=== PATIENT | female | born 1960 | race African-American/Black ===

== ENCOUNTER → 2019-09-17 | Outpatient (CLI) | payer BC | END | disposition home or self-care (01) | LOC: RAD 11:01 | PROVIDERS: ATTEND Internal Medicine Rheumatology | DX: M81.0 Age-related osteoporosis without current pathological fracture (principal); M19.90 Unspecified osteoarthritis, unspecified site; M06.4 Inflammatory polyarthropathy; M05.79 Rheumatoid arthritis with rheumatoid factor of multiple sites without organ or systems involvement; L40.50 Arthropathic psoriasis, unspecified | CPT/HCPCS: 77080 ==

== ENCOUNTER → 2020-07-27 | Outpatient (CLI) | payer BC | END | disposition home or self-care (01) | LOC: LAB 11:25 | PROVIDERS: ATTEND Internal Medicine Geriatric Medicine | DX: Z20.828 Contact with and (suspected) exposure to other viral communicable diseases (principal); M15.0 Primary generalized (osteo)arthritis; I10 Essential (primary) hypertension; Z00.01 Encounter for general adult medical examination with abnormal findings | CPT/HCPCS: 87635; C9803 ==

== ENCOUNTER → 2020-07-29 | Outpatient (CLI) | payer BC ==
[2020-07-29 16:00] LABS: BASOPHILS % 0.5 % (0.0-2.0); EOSINOPHILS % 0.3 % (0.0-5.0); HEMATOCRIT. 44.8 % (36.0-48.0); HEMOGLOBIN. 15.3 g/dL (12.0-16.0); LYMPHOCYTES % 16.2 % (20.0-50.0); MEAN CORPUSCULAR HEMOGLOBIN 33.8 pg (28.0-32.0); MEAN PLATELET VOLUME 8.7 fl (7.4-10.4); MONOCYTES % 6.1 % (2.0-8.0); NEUTROPHILS % 76.9 % (40.0-76.0); PLATELET 171 x1000/uL (130-400); RED BLOOD CELL COUNT 4.53 mill/uL (4.2-5.4); RED CELL DISTRIBUTION WIDTH 13.2 % (11.6-14.6)
[2020-07-29 16:03] LABS: CHLORIDE 108 mEq/L (98-107)
[2020-07-29 16:12] LABS: LDL CHOLESTEROL 125 mg/dL (5-100); TOTAL IRON BINDING CAPACITY 376 ug/dL (250-450)
[2020-07-29 16:13] LABS: HDL CHOLESTEROL 65 mg/dL (40-59)
[2020-07-29 16:22] LABS: FOLIC ACID (FOLATE) SERUM >20 ng/mL ng/mL (>5.38)
[2020-07-29 16:29] LABS: FERRITIN 32 ng/mL (10-291)
[2020-07-29 16:34] LABS: VITAMIN B12 SERUM 316 pg/mL (211-911)
== END | disposition home or self-care (01) ==
LOC: MAMMO 13:34
PROVIDERS: ATTEND Internal Medicine Geriatric Medicine
DX: Z12.31 Encounter for screening mammogram for malignant neoplasm of breast (principal); Z00.01 Encounter for general adult medical examination with abnormal findings; M17.12 Unilateral primary osteoarthritis, left knee; M17.11 Unilateral primary osteoarthritis, right knee; E04.2 Nontoxic multinodular goiter; I10 Essential (primary) hypertension; M15.0 Primary generalized (osteo)arthritis
CPT/HCPCS: 36415; 73562; 76536; 77067; 80053; 80061; 82306; 82607; 82728; 82746; 83036; 83540; 83550; 84443; 85025; 86592

== ENCOUNTER → 2020-10-06 | Outpatient (CLI) | payer BC, OTHER | END | disposition home or self-care (01) | LOC: CARD 09:40 | PROVIDERS: ATTEND Internal Medicine Geriatric Medicine | DX: S83.511A Sprain of anterior cruciate ligament of right knee, initial encounter (principal); M94.261 Chondromalacia, right knee; M25.761 Osteophyte, right knee; M17.12 Unilateral primary osteoarthritis, left knee; M85.88 Other specified disorders of bone density and structure, other site; M17.11 Unilateral primary osteoarthritis, right knee; X58.XXXA Exposure to other specified factors, initial encounter; Y93.89 Activity, other specified; Y92.89 Other specified places as the place of occurrence of the external cause; Y99.8 Other external cause status | CPT/HCPCS: 71046; 73521; 73560; 73721; 93306 ==

== ENCOUNTER → 2020-10-22 | Outpatient (CLI) | payer BC ==
[2020-10-22 12:55] LABS: BASOPHILS % 0.5 % (0.0-2.0); EOSINOPHILS % 0.1 % (0.0-5.0); HEMATOCRIT. 44.9 % (36.0-48.0); HEMOGLOBIN. 15.3 g/dL (12.0-16.0); LYMPHOCYTES % 13.2 % (20.0-50.0); MEAN CORPUSCULAR HEMOGLOBIN 33.1 pg (28.0-32.0); MEAN CORPUSCULAR VOLUME 97.3 fL (81.0-99.0); MEAN PLATELET VOLUME 8.6 fl (7.4-10.4); MONOCYTES % 5.7 % (2.0-8.0); NEUTROPHILS % 80.5 % (40.0-76.0); PLATELET 156 x1000/uL (130-400); RED BLOOD CELL COUNT 4.61 mill/uL (4.2-5.4); RED CELL DISTRIBUTION WIDTH 14.6 % (11.6-14.6)
[2020-10-22 13:00] LABS: CHLORIDE 107 mEq/L (98-107)
== END | disposition home or self-care (01) ==
LOC: LAB 12:18
PROVIDERS: ATTEND Internal Medicine Rheumatology
DX: M06.09 Rheumatoid arthritis without rheumatoid factor, multiple sites (principal); M19.90 Unspecified osteoarthritis, unspecified site; M06.4 Inflammatory polyarthropathy
CPT/HCPCS: 36415; 80053; 84550; 85025; 85651; 86140; 86430

== ENCOUNTER 2021-08-26 11:27 | Emergency (ER) | payer BC ==
[~2021-08-26] VITALS: Ht 177.8 cm; Wt 90.0 kg
[2021-08-26] MEDS ORDERED: NAPR-1176 MT (12:00)
[2021-08-26] MEDS ORDERED: KETOROLAC 30MG/ML VIAL IM ONE (12:00)
[2021-08-26] MEDS ORDERED: ACETAMINOPHEN WITH CODEINE 300/30MG TABLET PO ONE (12:00)
[2021-08-26] MEDS ORDERED: T3 PO (12:00)
[2021-08-26 13:13] VITALS: BP 138/78
== END 2021-08-26 13:14 | disposition home or self-care (01) ==
LOC: ER 11:39
DX: M25.561 Pain in right knee (principal); I10 Essential (primary) hypertension; Z88.8 Allergy status to other drugs, medicaments and biological substances
CPT/HCPCS: 96372; 99283; J1885

== ENCOUNTER → 2021-09-06 | Outpatient (CLI) | payer BC ==
[~2021-09-06] MED LIST: NAPR-1176 MT; T3 PO
[2021-09-06 13:09] LABS: BASOPHILS % 0.3 % (0.0-2.0); EOSINOPHILS % 0.2 % (0.0-5.0); HEMATOCRIT. 46.6 % (36.0-48.0); HEMOGLOBIN. 15.5 g/dL (12.0-16.0); LYMPHOCYTES % 13.2 % (20.0-50.0); MEAN CORPUSCULAR HEMOGLOBIN 32.3 pg (28.0-32.0); MEAN CORPUSCULAR VOLUME 97.3 fL (81.0-99.0); MEAN PLATELET VOLUME 8.9 fl (7.4-10.4); MONOCYTES % 5.9 % (2.0-8.0); NEUTROPHILS % 80.4 % (40.0-76.0); PLATELET 214 x1000/uL (130-400); RED BLOOD CELL COUNT 4.79 mill/uL (4.2-5.4); RED CELL DISTRIBUTION WIDTH 14.9 % (11.6-14.6)
[2021-09-06 13:21] LABS: CHLORIDE 104 mEq/L (98-107)
[2021-09-06 13:26] LABS: C REACTIVE PROTEIN QUANT 6.7 mg/L (0.0-3.0)
[2021-09-06 13:28] LABS: HDL CHOLESTEROL 70 mg/dL (40-59); LDL CHOLESTEROL 115 mg/dL (5-100)
[2021-09-06 13:29] LABS: TOTAL IRON BINDING CAPACITY 415 ug/dL (250-450)
[2021-09-06 13:31] LABS: CREATINE KINASE 124 IU/L (26-192)
[2021-09-06 13:35] LABS: FERRITIN 23 ng/mL (10-291)
[2021-09-06 13:46] LABS: HEPATITIS B SURFACE ANTIGEN NEGATIVE
[2021-09-06 14:06] LABS: VITAMIN B12 SERUM 224 pg/mL (211-911)
[2021-09-07 09:06] LABS: VITAMIN D 25-OH 19.5 ng/mL (30.0-100.0)
[2021-09-07 21:04] LABS: CLARITY URINE CLOUDY (CLEAR); COLOR URINE DARK YELLOW (YELLOW); KETONES URINE TRACE (NEGATIVE); LEUKOCYTE ESTERASE URINE NEGATIVE (NEGATIVE); NITRITE URINE NEGATIVE (NEGATIVE); OCCULT BLOOD URINE NEGATIVE (NEGATIVE); PROTEIN URINE TRACE (NEGATIVE); SPECIFIC GRAVITY URINE 1.024 (1.005-1.030)
[2021-09-08 13:07] LABS: ALDOLASE 2.6 U/L (3.3-10.3); ANA IFA Negative (.); ANGIOTENSION CONVERTING ENZYME 35 U/L (14-82)
== END | disposition home or self-care (01) ==
LOC: MAMMO 10:36
PROVIDERS: ATTEND Internal Medicine Geriatric Medicine
DX: Z12.31 Encounter for screening mammogram for malignant neoplasm of breast (principal); M81.0 Age-related osteoporosis without current pathological fracture; M17.0 Bilateral primary osteoarthritis of knee
CPT/HCPCS: 36415; 73560; 77063; 77067; 77080; 80053; 80061; 82085; 82164; 82306; 82550; 82607; 82728; 82746; 83036; 83540; 83550; 84436; 84443; 84550; 85025; 85651; 86140; 86160; 86256; 86430; 86592; 86705; 86709; 86803; 87340

== ENCOUNTER → 2021-12-07 | Outpatient (CLI) | payer BC ==
[2021-12-07 20:07] LABS: BASOPHILS % 0.3 % (0.0-2.0); EOSINOPHILS % 0.3 % (0.0-5.0); HEMATOCRIT. 37.9 % (36.0-48.0); HEMOGLOBIN. 12.7 g/dL (12.0-16.0); LYMPHOCYTES % 18.9 % (20.0-50.0); MEAN CORPUSCULAR HEMOGLOBIN 33.9 pg (28.0-32.0); MEAN CORPUSCULAR VOLUME 101.5 fL (81.0-99.0); MONOCYTES % 7.3 % (2.0-8.0); NEUTROPHILS % 73.2 % (40.0-76.0); PLATELET 243 x1000/uL (130-400); RED BLOOD CELL COUNT 3.74 mill/uL (4.2-5.4)
[2021-12-07 20:17] LABS: PARTIAL THROMBOPLASTIN TIME 26.8 sec (23.4-31.0); PROTHROMBIN TIME 10.4 sec (9.6-11.0)
[2021-12-07 20:22] LABS: CHLORIDE 113 mEq/L (98-107)
[2021-12-07 20:37] LABS: CLARITY URINE CLEAR (CLEAR); COLOR URINE YELLOW (YELLOW); KETONES URINE NEGATIVE (NEGATIVE); LEUKOCYTE ESTERASE URINE NEGATIVE (NEGATIVE); NITRITE URINE NEGATIVE (NEGATIVE); OCCULT BLOOD URINE NEGATIVE (NEGATIVE); PH URINE 5.5 (4.5-8.0); PROTEIN URINE NEGATIVE (NEGATIVE); SPECIFIC GRAVITY URINE 1.018 (1.005-1.030)
== END | disposition home or self-care (01) ==
LOC: CARD 12:13
PROVIDERS: ATTEND Internal Medicine Geriatric Medicine
DX: Z01.812 Encounter for preprocedural laboratory examination (principal); I10 Essential (primary) hypertension; N39.0 Urinary tract infection, site not specified
CPT/HCPCS: 36415; 71046; 80053; 81003; 85025; 93306

== ENCOUNTER → 2021-12-14 | Outpatient (CLI) | payer BC ==
[~2021-12-14] MED LIST changes: +AMLO10TA80 MT; +TOPUD PO
== END | disposition home or self-care (01) ==
LOC: LAB 13:28
DX: Z01.812 Encounter for preprocedural laboratory examination (principal); Z20.822 Contact with and (suspected) exposure to COVID-19
CPT/HCPCS: 87426

== ENCOUNTER 2022-01-19 16:12 | Inpatient (IN) | payer BC ==
[~2022-01-19] VITALS: Ht 172.7 cm; Wt 100.2 kg
[2022-01-19 17:40] LABS: BASOPHILS % 0.3 % (0.0-2.0); EOSINOPHILS % 0.2 % (0.0-5.0); HEMATOCRIT. 29.6 % (36.0-48.0); LYMPHOCYTES % 8.9 % (20.0-50.0); MEAN CORPUSCULAR HEMOGLOBIN 31.8 pg (28.0-32.0); MEAN CORPUSCULAR VOLUME 94.2 fL (81.0-99.0); MEAN PLATELET VOLUME 9.2 fl (7.4-10.4); MONOCYTES % 5.4 % (2.0-8.0); NEUTROPHILS % 85.2 % (40.0-76.0); PLATELET 182 x1000/uL (130-400); RED BLOOD CELL COUNT 3.14 mill/uL (4.2-5.4); RED CELL DISTRIBUTION WIDTH 15.7 % (11.6-14.6)
[2022-01-19 17:41] LABS: CHLORIDE 100 mEq/L (98-107)
[2022-01-19] MEDS ORDERED: CALCIUM CHLORIDE 1GM/10ML SYR IV ONE (18:30)
[2022-01-19] MEDS ORDERED: INSULIN REGULAR (HUMULIN R) 300UNITS/3ML VIAL IV ONE (18:30)
[2022-01-19] MEDS ORDERED: HYDROCODONE/ACETAMINOPHEN 5/325MG TABLET PO ONE (18:30)
[2022-01-19] MEDS ORDERED: ALBUTEROL (0.083%) 2.5MG/3ML NEB HHN ONE (18:30)
[2022-01-19] MEDS ORDERED: DEXTROSE 50% WATER 50ML SYRINGE IV ONE (18:30)
[2022-01-19 20:13] LABS: CHLORIDE 105 mEq/L (98-107)
[2022-01-19] MEDS ORDERED: SODIUM POLYSTYRENE SULFONATE 15 G/60 ML BOT PO NR (20:30)
[2022-01-19] MEDS ORDERED: ONDANSETRON HCL 4MG/2ML INJ IV PRN (20:30)
[2022-01-19] MEDS ORDERED: ENOXAPARIN 40MG/0.4ML SYR SUBCUT SCH (21:00)
[2022-01-19] MEDS: SODIUM CHLORIDE 0.45% 1,000 ML IV SCH (21:06)
[2022-01-19 21:52] VITALS: BP 128/64
[2022-01-19 22:14] LABS: CHLORIDE 103 mEq/L (98-107)
[2022-01-19 22:18] LABS: ETHANOL BLOOD < 10 mg/dL
[2022-01-19 22:25] LABS: CREATINE KINASE MB FRACTION < 1.0 ng/mL (0.5-3.6)
[2022-01-19 23:00] VITALS: BP 128/64
[2022-01-20] VITALS: BP 130/66
[2022-01-20] MEDS ORDERED: MAGN296S73 PO (00:19)
[2022-01-20] MEDS ORDERED: ASPI-1406 PO (00:19)
[2022-01-20] MEDS ORDERED: HYDR-4001 PO (00:19)
[2022-01-20 02:49] LABS: CLARITY URINE CLEAR (CLEAR); COLOR URINE YELLOW (YELLOW); KETONES URINE NEGATIVE (NEGATIVE); LEUKOCYTE ESTERASE URINE NEGATIVE (NEGATIVE); NITRITE URINE NEGATIVE (NEGATIVE); OCCULT BLOOD URINE TRACE (NEGATIVE); PROTEIN URINE NEGATIVE (NEGATIVE); SPECIFIC GRAVITY URINE 1.012 (1.005-1.030); UROBILINOGEN URINE 0.2 E.U./dL (0.2-1.0)
[2022-01-20 04:00] VITALS: BP 110/42
[2022-01-20] MEDS: SODIUM CHLORIDE 0.45% 1,000 ML IV SCH ×3 (06:20→22:30)
[2022-01-20 06:47] LABS: BASOPHILS % 0.2 % (0.0-2.0); EOSINOPHILS % 0.2 % (0.0-5.0); HEMATOCRIT. 27.7 % (36.0-48.0); HEMOGLOBIN. 9.4 g/dL (12.0-16.0); LYMPHOCYTES % 11.2 % (20.0-50.0); MEAN CORPUSCULAR HEMOGLOBIN 31.5 pg (28.0-32.0); MEAN CORPUSCULAR VOLUME 93.1 fL (81.0-99.0); MONOCYTES % 6.6 % (2.0-8.0); NEUTROPHILS % 81.8 % (40.0-76.0); PLATELET 161 x1000/uL (130-400); RED BLOOD CELL COUNT 2.97 mill/uL (4.2-5.4); RED CELL DISTRIBUTION WIDTH 15.4 % (11.6-14.6)
[2022-01-20 06:59] LABS: CHLORIDE 111 mEq/L (98-107)
[2022-01-20 07:25] LABS: PHOSPHORUS 8.5 mg/dL (2.5-4.9)
[2022-01-20 07:57] LABS: CREATINE KINASE MB FRACTION 1.5 ng/mL (0.5-3.6)
[2022-01-20 08:00] VITALS: BP 136/74
[2022-01-20] MEDS: SODIUM POLYSTYRENE SULFONATE 15 G/60 ML BOT PO SCH ×2 (09:02→09:28)
[2022-01-20 11:06] LABS: TOTAL IRON BINDING CAPACITY 205 ug/dL (250-450)
[2022-01-20 11:08] LABS: CREATINE KINASE 46 IU/L (26-192)
[2022-01-20 12:00] VITALS: BP 152/71
[2022-01-20] MEDS: SODIUM BICARBONATE 100 MEQ in SODIUM CHLORIDE 0.45% 1,000 ML IV SCH ×2 (12:39→20:23)
[2022-01-20] MEDS ORDERED: ENOXAPARIN 30MG/0.3ML SYR SUBCUT SCH ×2 (12:45→21:00)
[2022-01-20] MEDS ORDERED: ENOXAPARIN 30MG/0.3ML SYR SUBCUT NR (12:45)
[2022-01-20] MEDS: ENOXAPARIN 100MG/ML SYR SUBCUT SCH (14:21)
[2022-01-20] MEDS: ACETAMINOPHEN 325MG TABLET PO PRN ×2 (14:22→22:38)
[2022-01-20 16:00] VITALS: BP 128/59
[2022-01-20 16:37] LABS: HEPATITIS B SURFACE ANTIGEN NEGATIVE
[2022-01-20 17:36] LABS: HEMATOCRIT 23.9 % (36.0-48.0); HEMOGLOBIN 8.1 g/dL (12.0-16.0)
[2022-01-20 17:46] LABS: INR 1.1; PROTHROMBIN TIME 11.3 sec (9.6-11.0)
[2022-01-20 20:00] VITALS: BP 137/76
[2022-01-21] VITALS: BP_SYST 107; BP_SYST 122; BP_DIAS 70; BP_DIAS 77
[2022-01-21 04:00] VITALS: BP 127/72
[2022-01-21] MEDS: SODIUM BICARBONATE 100 MEQ in SODIUM CHLORIDE 0.45% 1,000 ML IV SCH ×2 (06:03→14:06)
[2022-01-21] MEDS: ACETAMINOPHEN 325MG TABLET PO PRN ×3 (06:33→23:12)
[2022-01-21 07:39] LABS: BASOPHILS % 0.5 % (0.0-2.0); EOSINOPHILS % 0.4 % (0.0-5.0); HEMATOCRIT. 21.4 % (36.0-48.0); HEMOGLOBIN. 7.6 g/dL (12.0-16.0); LYMPHOCYTES % 16.1 % (20.0-50.0); MEAN CORPUSCULAR HEMOGLOBIN 32.2 pg (28.0-32.0); MEAN CORPUSCULAR VOLUME 90.9 fL (81.0-99.0); MEAN PLATELET VOLUME 9.2 fl (7.4-10.4); PLATELET 142 x1000/uL (130-400); RED BLOOD CELL COUNT 2.35 mill/uL (4.2-5.4); RED CELL DISTRIBUTION WIDTH 15.4 % (11.6-14.6)
[2022-01-21 08:00] VITALS: BP 118/59
[2022-01-21 08:02] LABS: CREATINE KINASE 40 IU/L (26-192)
[2022-01-21] MEDS ORDERED: AMLODIPINE 2.5MG TABLET PO SCH (09:00)
[2022-01-21 09:06] LABS: ANTI-NUCLEAR ANTIBODIES DIRECT Negative (Negative)
[2022-01-21] MEDS ORDERED: POTASSIUM CHLORIDE 20MEQ TABLET SR PO NR (09:15)
[2022-01-21] MEDS ORDERED: MAGNESIUM/ALUMINUM HYDROXIDE/SIMETHICONE 30ML UDC PO PRN (09:15)
[2022-01-21 12:00] VITALS: BP 126/55
[2022-01-21] MEDS: ENOXAPARIN 100MG/ML SYR SUBCUT SCH (13:22)
[2022-01-21] MEDS: DILTIAZEM HCL 60MG TABLET PO SCH ×2 (13:22→18:36)
[2022-01-21 16:00] VITALS: BP 129/77
[2022-01-21] MEDS: DOCUSATE SODIUM 100MG CAPSULE PO SCH (17:00)
[2022-01-21 18:20] LABS: PHOSPHORUS 1.8 mg/dL (2.5-4.9)
[2022-01-21] MEDS: DEXT 5%/0.45% NACL 1000ML 1,000 ML IV SCH (18:33)
[2022-01-21] MEDS: FERROUS SULFATE 325MG TABLET PO SCH (18:36)
[2022-01-21 20:00] VITALS: BP 109/54
[2022-01-22] VITALS: BP 112/65
[2022-01-22 01:04] LABS: HEMATOCRIT 21.8 % (36.0-48.0); HEMOGLOBIN 7.4 g/dL (12.0-16.0)
[2022-01-22] MEDS: DEXT 5%/0.45% NACL 1000ML 1,000 ML IV SCH ×2 (02:13→12:33)
[2022-01-22] MEDS: DILTIAZEM HCL 60MG TABLET PO SCH ×4 (02:13→18:44)
[2022-01-22 04:00] VITALS: BP 122/71
[2022-01-22 05:43] LABS: BASOPHILS % 0.3 % (0.0-2.0); EOSINOPHILS % 0.4 % (0.0-5.0); HEMATOCRIT. 21.5 % (36.0-48.0); HEMOGLOBIN. 7.3 g/dL (12.0-16.0); LYMPHOCYTES % 22.4 % (20.0-50.0); MEAN CORPUSCULAR HEMOGLOBIN 31.4 pg (28.0-32.0); MEAN CORPUSCULAR VOLUME 92.4 fL (81.0-99.0); MEAN PLATELET VOLUME 8.9 fl (7.4-10.4); MONOCYTES % 11.2 % (2.0-8.0); NEUTROPHILS % 65.7 % (40.0-76.0); PLATELET 144 x1000/uL (130-400); RED BLOOD CELL COUNT 2.33 mill/uL (4.2-5.4); RED CELL DISTRIBUTION WIDTH 15.4 % (11.6-14.6)
[2022-01-22 08:00] VITALS: BP 146/78
[2022-01-22] MEDS ORDERED: POTASSIUM PHOS,M-BASIC-D-BASIC 15 MMOL in DEXT 5% WATER 245 ML IV NR (08:00)
[2022-01-22] MEDS: FERROUS SULFATE 325MG TABLET PO SCH ×3 (08:37→18:44)
[2022-01-22] MEDS: DOCUSATE SODIUM 100MG CAPSULE PO SCH ×2 (08:37→18:44)
[2022-01-22] MEDS ORDERED: POTASSIUM CHLORIDE 20MEQ TABLET SR PO NR (09:45)
[2022-01-22 12:00] VITALS: BP 131/71
[2022-01-22] MEDS: ACETAMINOPHEN 325MG TABLET PO PRN ×2 (12:41→18:52)
[2022-01-22] MEDS: ENOXAPARIN 100MG/ML SYR SUBCUT SCH (13:40)
[2022-01-22 16:00] VITALS: BP 132/73
[2022-01-22 17:00] LABS: HEMATOCRIT 21.4 % (36.0-48.0); HEMOGLOBIN 7.4 g/dL (12.0-16.0)
[2022-01-22 20:00] VITALS: BP 129/69
[2022-01-23] VITALS (10 sets, daily range): BP systolic 114–133; BP diastolic 65–80
[2022-01-23 00:30] LABS: HEMATOCRIT 21.5 % (36.0-48.0); HEMOGLOBIN 7.4 g/dL (12.0-16.0)
[2022-01-23] MEDS: DILTIAZEM HCL 60MG TABLET PO SCH ×2 (00:47→05:05)
[2022-01-23] MEDS: ACETAMINOPHEN 325MG TABLET PO PRN ×2 (00:47→05:06)
[2022-01-23] MEDS: DEXT 5%/0.45% NACL 1000ML 1,000 ML IV SCH ×4 (00:48→22:06)
[2022-01-23 06:37] LABS: BASOPHILS % 0.5 % (0.0-2.0); EOSINOPHILS % 0.4 % (0.0-5.0); HEMATOCRIT. 22.7 % (36.0-48.0); HEMOGLOBIN. 7.7 g/dL (12.0-16.0); LYMPHOCYTES % 18.9 % (20.0-50.0); MEAN CORPUSCULAR HEMOGLOBIN 31.7 pg (28.0-32.0); MEAN CORPUSCULAR VOLUME 93.3 fL (81.0-99.0); MEAN PLATELET VOLUME 9.2 fl (7.4-10.4); MONOCYTES % 10.5 % (2.0-8.0); NEUTROPHILS % 69.7 % (40.0-76.0); PLATELET 165 x1000/uL (130-400); RED BLOOD CELL COUNT 2.43 mill/uL (4.2-5.4); RED CELL DISTRIBUTION WIDTH 15.5 % (11.6-14.6)
[2022-01-23 06:56] LABS: CHLORIDE 111 mEq/L (98-107)
[2022-01-23 07:06] LABS: PHOSPHORUS 1.2 mg/dL (2.5-4.9)
[2022-01-23] MEDS: FERROUS SULFATE 325MG TABLET PO SCH ×3 (08:59→18:40)
[2022-01-23] MEDS: DOCUSATE SODIUM 100MG CAPSULE PO SCH ×2 (08:59→17:00)
[2022-01-23] MEDS ORDERED: POTASSIUM CHLORIDE 10MEQ TABLET SR PO SCH (09:00)
[2022-01-23] MEDS ORDERED: NON FORMULARY PATIENT HOME MED XX SCH (09:15)
[2022-01-23] MEDS: DOCUSATE SODIUM 250MG CAPSULE PO SCH (09:30)
[2022-01-23] MEDS ORDERED: NALOXONE HCL 0.4MG/ML VIAL IV PRN (09:30)
[2022-01-23] MEDS ORDERED: POTASSIUM PHOS,M-BASIC-D-BASIC 20 MMOL in DEXT 5% WATER 243.3333 ML IV NR ×2 (11:00→23:00)
[2022-01-23] MEDS ORDERED: DEXT 5%/0.45% NACL 1000ML 1,000 ML IV SCH (12:15)
[2022-01-23] MEDS: HYDROCODONE/ACETAMINOPHEN 5/325MG TABLET PO PRN ×2 (13:29→23:37)
[2022-01-23] MEDS: MULTIVITAMINS,THER W-MINERALS TABLET PO SCH (18:40)
[2022-01-23] MEDS ORDERED: POTASSIUM CHLORIDE 10MEQ TABLET SR PO NR (18:45)
[2022-01-23] MEDS: MELATONIN 3MG TABLET PO SCH (21:00)
[2022-01-23] MEDS: AMLODIPINE 5MG TABLET PO SCH (22:05)
[2022-01-24] VITALS: BP 107/61
[2022-01-24 04:00] VITALS: BP 125/74
[2022-01-24 08:00] VITALS: BP 123/64
[2022-01-24] MEDS: HYDROCODONE/ACETAMINOPHEN 5/325MG TABLET PO PRN ×3 (09:04→21:17)
[2022-01-24] MEDS: DOCUSATE SODIUM 250MG CAPSULE PO SCH (09:05)
[2022-01-24] MEDS: MULTIVITAMINS,THER W-MINERALS TABLET PO SCH (09:05)
[2022-01-24] MEDS: FERROUS SULFATE 325MG TABLET PO SCH ×3 (09:05→17:58)
[2022-01-24] MEDS: DOCUSATE SODIUM 100MG CAPSULE PO SCH ×2 (09:05→17:58)
[2022-01-24] MEDS: AMLODIPINE 5MG TABLET PO SCH ×2 (09:06→21:17)
[2022-01-24] MEDS: DEXT 5%/0.45% NACL 1000ML 1,000 ML IV SCH (09:14)
[2022-01-24] MEDS ORDERED: LACTULOSE 20G/30ML UDC PO SCH (09:15)
[2022-01-24 09:20] LABS: HEMATOCRIT 26.4 % (36.0-48.0)
[2022-01-24 09:30] LABS: PHOSPHORUS 2.7 mg/dL (2.5-4.9)
[2022-01-24] MEDS ORDERED: LACTULOSE 20G/30ML UDC PO NR (09:30)
[2022-01-24 09:31] LABS: PROTHROMBIN TIME 10.9 sec (9.6-11.0)
[2022-01-24 12:00] VITALS: BP 114/67
[2022-01-24] MEDS: POTASSIUM-SODIUM PHOSPHATE POWDER PACKET PO SCH ×2 (12:48→17:58)
[2022-01-24 16:00] VITALS: BP 113/56
[2022-01-24 20:00] VITALS: BP 118/67
[2022-01-24] MEDS ORDERED: LACTULOSE 20G/30ML UDC PO PRN (21:00)
[2022-01-24] MEDS: MELATONIN 3MG TABLET PO SCH (23:44)
[2022-01-25] VITALS: BP 121/75
[2022-01-25 04:00] VITALS: BP 126/79
[2022-01-25 06:38] LABS: BASOPHILS % 0.5 % (0.0-2.0); EOSINOPHILS % 0.4 % (0.0-5.0); HEMATOCRIT. 26.6 % (36.0-48.0); LYMPHOCYTES % 14.6 % (20.0-50.0); MEAN CORPUSCULAR HEMOGLOBIN 31.3 pg (28.0-32.0); MEAN CORPUSCULAR VOLUME 92.5 fL (81.0-99.0); MONOCYTES % 11.5 % (2.0-8.0); PLATELET 175 x1000/uL (130-400); RED BLOOD CELL COUNT 2.88 mill/uL (4.2-5.4); RED CELL DISTRIBUTION WIDTH 16.2 % (11.6-14.6)
[2022-01-25 06:54] LABS: CHLORIDE 112 mEq/L (98-107)
[2022-01-25 06:59] LABS: PHOSPHORUS 2.2 mg/dL (2.5-4.9)
[2022-01-25 08:00] VITALS: BP 135/78
[2022-01-25] MEDS ORDERED: MELA3TAB40 PO (09:00)
[2022-01-25] MEDS ORDERED: TOPUD PO (09:00)
[2022-01-25] MEDS ORDERED: LACT10SO7 PO (09:00)
[2022-01-25] MEDS ORDERED: AMLO5TAB88 PO (09:00)
[2022-01-25] MEDS ORDERED: APIX5TAB PO (09:00)
[2022-01-25] MEDS ORDERED: LINA290C MT (09:00)
[2022-01-25] MEDS ORDERED: FERR-63 PO (09:00)
[2022-01-25] MEDS ORDERED: SORBITOL 70% SOLN 30ML PO NR (09:15)
[2022-01-25] MEDS: POTASSIUM-SODIUM PHOSPHATE POWDER PACKET PO SCH (09:42)
[2022-01-25] MEDS: FERROUS SULFATE 325MG TABLET PO SCH (09:42)
[2022-01-25] MEDS: DOCUSATE SODIUM 250MG CAPSULE PO SCH (09:42)
[2022-01-25] MEDS: HYDROCODONE/ACETAMINOPHEN 5/325MG TABLET PO PRN (09:43)
[2022-01-25] MEDS: AMLODIPINE 5MG TABLET PO SCH (09:56)
[2022-01-25] MEDS: MULTIVITAMINS,THER W-MINERALS TABLET PO SCH (09:57)
[2022-01-25] MEDS ORDERED: SODIUM PHOS,M-BASIC-D-BASIC 15 MM in DEXT 5% WATER 245 ML IV NR (11:00)
[2022-01-25 11:50] VITALS: BP 126/86
[2022-01-25 12:00] VITALS: BP 119/78
[2022-01-25] MEDS ORDERED: APIXABAN 5 MG TABLET PO SCH (17:00)
== END 2022-01-25 15:00 | disposition home or self-care (01) | DRG 698 ==
LOC: ER 16:12 → 5WST 19:33 → ENRESERV 21:10 → UNDODISIN 01-23 09:10
PROVIDERS: ADMIT Internal Medicine Geriatric Medicine; ATTEND Internal Medicine Geriatric Medicine
PROC: 30233N1 Transfusion of Nonautologous Red Blood Cells into Peripheral Vein, Percutaneous Approach (ICD-10-PCS; principal; 2022-01-23)
DX: N13.9 Obstructive and reflux uropathy, unspecified (principal); N18.6 End stage renal disease; N17.9 Acute kidney failure, unspecified; I12.0 Hypertensive chronic kidney disease with stage 5 chronic kidney disease or end stage renal disease; E87.2 Acidosis; I48.92 Unspecified atrial flutter; I82.432 Acute embolism and thrombosis of left popliteal vein; E44.1 Mild protein-calorie malnutrition; I82.411 Acute embolism and thrombosis of right femoral vein; I82.431 Acute embolism and thrombosis of right popliteal vein; R33.9 Retention of urine, unspecified; D63.8 Anemia in other chronic diseases classified elsewhere; E87.5 Hyperkalemia; E88.09 Other disorders of plasma-protein metabolism, not elsewhere classified; I44.0 Atrioventricular block, first degree; E86.9 Volume depletion, unspecified; E87.6 Hypokalemia; F17.210 Nicotine dependence, cigarettes, uncomplicated; I48.0 Paroxysmal atrial fibrillation; D50.9 Iron deficiency anemia, unspecified; E83.39 Other disorders of phosphorus metabolism; J44.9 Chronic obstructive pulmonary disease, unspecified; Z20.822 Contact with and (suspected) exposure to COVID-19; Z96.651 Presence of right artificial knee joint; K59.09 Other constipation; I27.20 Pulmonary hypertension, unspecified; L40.9 Psoriasis, unspecified; M19.90 Unspecified osteoarthritis, unspecified site; R31.0 Gross hematuria; Z79.899 Other long term (current) drug therapy; I25.2 Old myocardial infarction; Z82.49 Family history of ischemic heart disease and other diseases of the circulatory system; Z98.84 Bariatric surgery status; Z79.01 Long term (current) use of anticoagulants; Z88.8 Allergy status to other drugs, medicaments and biological substances; Z91.040 Latex allergy status; Z79.82 Long term (current) use of aspirin; Z68.33 Body mass index [BMI] 33.0-33.9, adult
CPT/HCPCS: 36415; 71045; 76770; 80048; 80053; 80320; 81003; 82550; 82553; 83540; 83550; 83735; 83880; 84100; 84484; 84550; 85014; 85018; 85025; 85049; 85384; 86038; 86160; 86705; 86709; 86803; 86850; 86900; 86920; 87340; 87426; 93005; 93306; 93970; 94644; 97162; 99285; A6261; J1650; J1815; J3490; J7060; P9016; A4315; G0480

== ENCOUNTER → 2022-02-03 | Outpatient (CLI) | payer BC ==
[~2022-02-03] MED LIST changes: -AMLO10TA80 MT; +AMLO5TAB88 PO; +APIX5TAB PO; +FERR-63 PO; +HYDR-4001 PO; +LACT10SO7 PO; +LINA290C MT; +MELA3TAB40 PO; -NAPR-1176 MT; -T3 PO
[2022-02-03 14:17] LABS: BASOPHILS % 0.7 % (0.0-2.0); EOSINOPHILS % 0.3 % (0.0-5.0); HEMATOCRIT. 33.6 % (36.0-48.0); HEMOGLOBIN. 11.3 g/dL (12.0-16.0); LYMPHOCYTES % 20.4 % (20.0-50.0); MEAN CORPUSCULAR HEMOGLOBIN 30.7 pg (28.0-32.0); MEAN CORPUSCULAR VOLUME 91.7 fL (81.0-99.0); MEAN PLATELET VOLUME 7.7 fl (7.4-10.4); MONOCYTES % 7.1 % (2.0-8.0); NEUTROPHILS % 71.5 % (40.0-76.0); PLATELET 418 x1000/uL (130-400); RED BLOOD CELL COUNT 3.67 mill/uL (4.2-5.4); RED CELL DISTRIBUTION WIDTH 16.4 % (11.6-14.6)
[2022-02-03 14:42] LABS: CHLORIDE 110 mEq/L (98-107)
[2022-02-03 14:48] LABS: LDL CHOLESTEROL 79 mg/dL (5-100)
[2022-02-03 14:50] LABS: HDL CHOLESTEROL 30 mg/dL (40-59)
[2022-02-03 14:52] LABS: T4 FREE 1.05 ng/dL (0.76-1.46)
[2022-02-03 14:53] LABS: TOTAL IRON BINDING CAPACITY 181 ug/dL (250-450)
[2022-02-03 15:02] LABS: FOLIC ACID (FOLATE) SERUM 17.2 ng/mL (>5.38)
== END | disposition home or self-care (01) ==
LOC: LAB 12:52
PROVIDERS: ATTEND Internal Medicine Geriatric Medicine
DX: D72.828 Other elevated white blood cell count (principal)
CPT/HCPCS: 36415; 80053; 80061; 82306; 82728; 82746; 83036; 83540; 83550; 84439; 84443; 84481; 85025

== ENCOUNTER → 2022-02-10 | Outpatient (CLI) | payer BC | END | disposition home or self-care (01) | LOC: RAD 13:32 | DX: M17.0 Bilateral primary osteoarthritis of knee (principal); M85.88 Other specified disorders of bone density and structure, other site; M25.762 Osteophyte, left knee; Z44.10 Encounter for fitting and adjustment of unspecified artificial leg | CPT/HCPCS: 73562 ==

== ENCOUNTER → 2022-05-11 | Outpatient (CLI) | payer BC ==
[2022-05-11 15:58] LABS: BASOPHILS % 0.2 % (0.0-2.0); EOSINOPHILS % 0.3 % (0.0-5.0); HEMATOCRIT. 39.6 % (36.0-48.0); HEMOGLOBIN. 13.3 g/dL (12.0-16.0); LYMPHOCYTES % 20.6 % (20.0-50.0); MEAN CORPUSCULAR HEMOGLOBIN 30.8 pg (28.0-32.0); MEAN CORPUSCULAR VOLUME 91.7 fL (81.0-99.0); MEAN PLATELET VOLUME 7.7 fl (7.4-10.4); MONOCYTES % 4.5 % (2.0-8.0); NEUTROPHILS % 74.4 % (40.0-76.0); PLATELET 249 x1000/uL (130-400); RED BLOOD CELL COUNT 4.31 mill/uL (4.2-5.4); RED CELL DISTRIBUTION WIDTH 15.6 % (11.6-14.6)
[2022-05-11 16:44] LABS: CHLORIDE 111 mEq/L (98-107)
[2022-05-11 16:59] LABS: HDL CHOLESTEROL 49 mg/dL (40-59); LDL CHOLESTEROL 103 mg/dL (5-100)
[2022-05-11 17:28] LABS: FOLIC ACID (FOLATE) SERUM >20 ng/mL ng/mL (>5.38)
[2022-05-12 11:06] LABS: CARCINO EMBRYONIC ANTIGEN 1.8 ng/ml
== END | disposition home or self-care (01) ==
LOC: LAB 15:13
PROVIDERS: ATTEND Internal Medicine Geriatric Medicine
DX: I10 Essential (primary) hypertension (principal); R63.4 Abnormal weight loss; D50.0 Iron deficiency anemia secondary to blood loss (chronic)
CPT/HCPCS: 36415; 80053; 80061; 82378; 82746; 83036; 84439; 84443; 85025

== ENCOUNTER → 2023-03-14 | Outpatient (CLI) | payer BC ==
[2023-03-14 14:16] LABS: BASOPHILS % 0.2 % (0.0-2.0); EOSINOPHILS % 0.2 % (0.0-5.0); HEMATOCRIT. 36.3 % (36.0-48.0); HEMOGLOBIN. 12.2 g/dL (12.0-16.0); MEAN CORPUSCULAR HEMOGLOBIN 29.7 pg (28.0-32.0); MEAN PLATELET VOLUME 7.4 fl (7.4-10.4); MONOCYTES % 5.4 % (2.0-8.0); NEUTROPHILS % 76.2 % (40.0-76.0); PLATELET 243 x1000/uL (130-400); RED BLOOD CELL COUNT 4.13 mill/uL (4.2-5.4); RED CELL DISTRIBUTION WIDTH 16.7 % (11.6-14.6)
[2023-03-14 15:11] LABS: HDL CHOLESTEROL 71 mg/dL (40-59); LDL CHOLESTEROL 75 mg/dL (5-100); T4 FREE 0.67 ng/dL (0.76-1.46)
[2023-03-14 15:25] LABS: CARCINO EMBRYONIC ANTIGEN 1.7 ng/ml
[2023-03-14 15:28] LABS: VITAMIN B12 SERUM 172 pg/mL (211-911)
[2023-03-14 15:36] LABS: HEPATITIS B SURFACE ANTIGEN NEGATIVE
[2023-03-14 15:38] LABS: CHLORIDE 113 mEq/L (98-107)
== END | disposition home or self-care (01) ==
LOC: LAB 13:30
PROVIDERS: ATTEND Internal Medicine Geriatric Medicine
DX: E78.5 Hyperlipidemia, unspecified (principal)
CPT/HCPCS: 80053; 80061; 82306; 82378; 82607; 82746; 83036; 84436; 84439; 84443; 84550; 85025; 86705; 86709; 86803; 87340

== ENCOUNTER 2023-03-29 15:37 | Emergency (ER) | payer BC ==
[~2023-03-29] VITALS: Ht 170.2 cm; Wt 81.8 kg
[2023-03-29 16:46] LABS: BASOPHILS % 0.5 % (0.0-2.0); EOSINOPHILS % 0.5 % (0.0-5.0); HEMATOCRIT. 35.6 % (36.0-48.0); HEMOGLOBIN. 11.9 g/dL (12.0-16.0); LYMPHOCYTES % 25.2 % (20.0-50.0); MEAN CORPUSCULAR HEMOGLOBIN 29.8 pg (28.0-32.0); MEAN CORPUSCULAR VOLUME 88.9 fL (81.0-99.0); MEAN PLATELET VOLUME 8.2 fl (7.4-10.4); MONOCYTES % 6.3 % (2.0-8.0); NEUTROPHILS % 67.5 % (40.0-76.0); PLATELET 218 x1000/uL (130-400); RED CELL DISTRIBUTION WIDTH 17.3 % (11.6-14.6)
[2023-03-29 16:54] LABS: PROTHROMBIN TIME 10.7 sec (9.6-11.0)
[2023-03-29 17:02] LABS: CHLORIDE 112 mEq/L (98-107)
[2023-03-29 17:43] LABS: CLARITY URINE CLEAR (CLEAR); COLOR URINE YELLOW (YELLOW); KETONES URINE NEGATIVE (NEGATIVE); LEUKOCYTE ESTERASE URINE 1+ (NEGATIVE); NITRITE URINE POSITIVE (NEGATIVE); OCCULT BLOOD URINE NEGATIVE (NEGATIVE); PH URINE 5.5 (4.5-8.0); PROTEIN URINE TRACE (NEGATIVE); SPECIFIC GRAVITY URINE 1.016 (1.005-1.030); UROBILINOGEN URINE 0.2 E.U./dL (0.2-1.0)
[2023-03-29] MEDS ORDERED: NITR-87 MT (17:56)
[2023-03-29 18:26] VITALS: BP 145/87
== END 2023-03-29 18:28 | disposition home or self-care (01) ==
LOC: ER 15:37
DX: R53.1 Weakness (principal); N39.0 Urinary tract infection, site not specified; I10 Essential (primary) hypertension; Z79.899 Other long term (current) drug therapy
CPT/HCPCS: 36415; 71045; 80053; 81003; 83880; 84484; 85025; 87077; 87186; 93005; 99285

== ENCOUNTER 2023-04-28 20:22 | Emergency (ER) | payer BC ==
[~2023-04-28] VITALS: Ht 175.3 cm; Wt 86.9 kg
[~2023-04-28 20:22] MED LIST changes: +NITR-87 MT
[2023-04-28 20:28] VITALS: BP 191/109
[2023-04-28] MEDS ORDERED: ERYT1OIN6 EACHEYE (20:50)
== END 2023-04-28 20:58 | disposition home or self-care (01) ==
LOC: ER 20:22
DX: H01.006 Unspecified blepharitis left eye, unspecified eyelid (principal); H01.003 Unspecified blepharitis right eye, unspecified eyelid; I10 Essential (primary) hypertension; Z79.899 Other long term (current) drug therapy
CPT/HCPCS: 99283

== ENCOUNTER 2023-12-21 12:09 | Emergency (ER) | payer BC ==
[~2023-12-21] VITALS: Ht 170.2 cm; Wt 79.0 kg
[~2023-12-21 12:09] MED LIST changes: +ERYT1OIN6 EACHEYE
[2023-12-21 12:20] VITALS: TEMP 98.3; O2SAT 97
[2023-12-21] MEDS ORDERED: HYDROCODONE/ACETAMINOPHEN 5/325MG TABLET PO STA (14:11)
[2023-12-21 14:26] LABS: CLARITY URINE CLEAR (CLEAR); COLOR URINE YELLOW (YELLOW); GLUCOSE URINE NEGATIVE (NEGATIVE); KETONES URINE NEGATIVE (NEGATIVE); LEUKOCYTE ESTERASE URINE 1+ (NEGATIVE); NITRITE URINE POSITIVE (NEGATIVE); OCCULT BLOOD URINE NEGATIVE (NEGATIVE); PH URINE 5.5 (4.5-8.0); PROTEIN URINE 1+ (NEGATIVE); SPECIFIC GRAVITY URINE 1.019 (1.005-1.030); UROBILINOGEN URINE 0.2 E.U./dL (0.2-1.0)
[2023-12-21 14:41] LABS: BASOPHILS % 0.4 % (0.0-2.0); EOSINOPHILS % 0.1 % (0.0-5.0); HEMATOCRIT. 35.4 % (36.0-48.0); HEMOGLOBIN. 11.2 g/dL (12.0-16.0); LYMPHOCYTES % 20.4 % (20.0-50.0); MEAN CORPUSCULAR HEMOGLOBIN 27.5 pg (28.0-32.0); MEAN CORPUSCULAR HGB CONC 31.7 g/dL (31.0-37.0); MEAN CORPUSCULAR VOLUME 86.7 fL (81.0-99.0); MEAN PLATELET VOLUME 7.6 fl (7.4-10.4); MONOCYTES % 6.3 % (2.0-8.0); NEUTROPHILS % 72.8 % (40.0-76.0); PLATELET 241 x1000/uL (130-400); RED BLOOD CELL COUNT 4.08 mill/uL (4.2-5.4); RED CELL DISTRIBUTION WIDTH 17.5 % (11.6-14.6); WHITE BLOOD COUNT 8.4 x1000/uL (4.5-11.0)
[2023-12-21] MEDS ORDERED: KETOROLAC 60MG/2ML VIAL IM STA (14:47)
[2023-12-21 14:52] LABS: ALANINE AMINOTRANSFERASE < 7 IU/L (10-49); ALBUMIN 4.1 g/dL (3.2-4.8); ASPARTATE AMINOTRANSFERASE 17 IU/L (<34); BILIRUBIN TOTAL 0.3 mg/dL (0.1-1.0); CALCIUM 8.9 mg/dL (8.7-10.4); CARBON DIOXIDE 26 mEq/L (21-32); CHLORIDE 109 mEq/L (98-107); GLUCOSE 92 mg/dL (70-105); POTASSIUM 3.8 mEq/L (3.5-5.1); PROTEIN TOTAL 7.1 g/dL (6.0-8.3); SODIUM 141 mEq/L (136-145); UREA NITROGEN BLOOD 14 mg/dL (9-23)
[2023-12-21 14:55] LABS: SQUAMOUS EPITHELIAL CELL URINE 2+ /lpf (RARE/1+)
[2023-12-21] MEDS ORDERED: CYCLOBENZAPRINE 10MG TABLET PO ONE (15:00)
[2023-12-21 15:09] LABS: WBC URINE 25-50 /hpf (0-2)
[2023-12-21 15:10] LABS: BACTERIA URINE 4+; RBC URINE 0-2 /hpf (0-2)
[2023-12-21] MEDS ORDERED: CEPHALEXIN 250MG CAPSULE PO ONE (15:15)
[2023-12-21 16:18] LABS: TROPONIN I HIGH SENSITIVITY 4 ng/L (3.0-34)
[2023-12-21] MEDS ORDERED: TRAM50TA3 MT (17:10)
[2023-12-21] MEDS ORDERED: CEPH500C2 MT (17:10)
[2023-12-21 17:22] VITALS: BP 165/88; PULSE 75; RESP 16
== END 2023-12-21 17:45 | disposition home or self-care (01) ==
LOC: ER 12:09
DX: N12 Tubulo-interstitial nephritis, not specified as acute or chronic (principal); I10 Essential (primary) hypertension; F17.200 Nicotine dependence, unspecified, uncomplicated; Z98.890 Other specified postprocedural states
CPT/HCPCS: 80053; 81003; 85025; 87086; 87186; 84484; 87077; 36415; 74176; 93005; 96372; 99285; J1885; Z7610 ×2

== ENCOUNTER 2023-12-25 11:01 | Emergency (ER) | payer BC ==
[~2023-12-25] VITALS: Ht 167.6 cm; Wt 80.0 kg
[~2023-12-25 11:01] MED LIST changes: +CEPH500C2 MT; +TRAM50TA3 MT
[2023-12-25 11:14] VITALS: TEMP 98.6; O2SAT 100
[2023-12-25 12:12] LABS: BASOPHILS % 0.6 % (0.0-2.0); EOSINOPHILS % 0.4 % (0.0-5.0); HEMATOCRIT. 35.3 % (36.0-48.0); HEMOGLOBIN. 11.6 g/dL (12.0-16.0); LYMPHOCYTES % 24.5 % (20.0-50.0); MEAN CORPUSCULAR HEMOGLOBIN 28.4 pg (28.0-32.0); MEAN CORPUSCULAR HGB CONC 32.9 g/dL (31.0-37.0); MEAN CORPUSCULAR VOLUME 86.1 fL (81.0-99.0); MEAN PLATELET VOLUME 7.9 fl (7.4-10.4); MONOCYTES % 7.1 % (2.0-8.0); NEUTROPHILS % 67.4 % (40.0-76.0); PLATELET 249 x1000/uL (130-400); RED CELL DISTRIBUTION WIDTH 17.8 % (11.6-14.6); WHITE BLOOD COUNT 8.8 x1000/uL (4.5-11.0)
[2023-12-25 12:24] LABS: ALANINE AMINOTRANSFERASE < 7 IU/L (10-49); ALBUMIN 4.5 g/dL (3.2-4.8); ASPARTATE AMINOTRANSFERASE 17 IU/L (<34); BILIRUBIN TOTAL 0.2 mg/dL (0.1-1.0); CALCIUM 9.2 mg/dL (8.7-10.4); CARBON DIOXIDE 26 mEq/L (21-32); CHLORIDE 107 mEq/L (98-107); GLUCOSE 83 mg/dL (70-105); POTASSIUM 4.2 mEq/L (3.5-5.1); PROTEIN TOTAL 7.9 g/dL (6.0-8.3); SODIUM 137 mEq/L (136-145); UREA NITROGEN BLOOD 17 mg/dL (9-23)
[2023-12-25 13:00] VITALS: BP 172/88; PULSE 72; RESP 16
[2023-12-25] MEDS: KETOROLAC 30MG/ML VIAL IM ONE (13:00)
[2023-12-25] MEDS: HYDROCODONE/ACETAMINOPHEN 5/325MG TABLET PO ONE (13:00)
[2023-12-25 13:12] LABS: CLARITY URINE CLEAR (CLEAR); COLOR URINE YELLOW (YELLOW); GLUCOSE URINE NEGATIVE (NEGATIVE); KETONES URINE NEGATIVE (NEGATIVE); LEUKOCYTE ESTERASE URINE NEGATIVE (NEGATIVE); NITRITE URINE NEGATIVE (NEGATIVE); OCCULT BLOOD URINE NEGATIVE (NEGATIVE); PH URINE 5.5 (4.5-8.0); PROTEIN URINE TRACE (NEGATIVE); SPECIFIC GRAVITY URINE 1.018 (1.005-1.030)
[2023-12-25 14:00] LABS: SQUAMOUS EPITHELIAL CELL URINE 1+ /lpf (RARE/1+)
[2023-12-25 14:01] LABS: BACTERIA URINE TRACE
[2023-12-25 14:02] LABS: RBC URINE 0-2 /hpf (0-2); WBC URINE 0-2 /hpf (0-2)
[2023-12-25] MEDS ORDERED: CEPH500C2 MT (15:10)
[2023-12-25] MEDS ORDERED: NAPR500T7 MT (15:10)
== END 2023-12-25 15:29 | disposition home or self-care (01) ==
LOC: ER 11:01
DX: N39.0 Urinary tract infection, site not specified (principal); M54.9 Dorsalgia, unspecified; I10 Essential (primary) hypertension; Z96.653 Presence of artificial knee joint, bilateral
CPT/HCPCS: 99283; 80053; 81003; 81025; 85025; 36415; 96372; J1885

== ENCOUNTER → 2024-01-01 | Outpatient (CLI) | payer BC ==
[~2024-01-01] MED LIST changes: +NAPR500T7 MT
== END | disposition home or self-care (01) ==
LOC: MRI 12:42
PROVIDERS: ATTEND Internal Medicine Geriatric Medicine
DX: S32.020A Wedge compression fracture of second lumbar vertebra, initial encounter for closed fracture (principal); M51.37 Other intervertebral disc degeneration, lumbosacral region; M48.07 Spinal stenosis, lumbosacral region; X58.XXXA Exposure to other specified factors, initial encounter; Y93.89 Activity, other specified; Y92.89 Other specified places as the place of occurrence of the external cause; Y99.8 Other external cause status
CPT/HCPCS: 72148